=== PATIENT | male | born 1960 | race African-American/Black ===

== ENCOUNTER 2024-05-27 01:25 | Inpatient (IN) | payer MEDICARE ==
[2024-05-27] VITALS (16 sets, daily range): BP systolic 129–173; BP diastolic 78–110; PULSE 45–105; RESP 16–28; TEMP 97.2–98.6; O2SAT 88–99
[~2024-05-27] VITALS: Ht 180.3 cm; Wt 81.6 kg
[2024-05-27] MEDS: ASPIRIN 325 MG TAB PO ONE (02:15)
[2024-05-27] MEDS: NITROGLYCERIN 2% OINT 1 GM PKT TOP ONE (02:16)
[2024-05-27] MEDS ORDERED: IOPAMIDOL 370 MG/ML 100 ML INFUS..BTL INJ ONE (02:27)
[2024-05-27] MEDS: FUROSEMIDE INJ 10 MG/ML 4 ML VIAL IV ONE (02:48)
[2024-05-27] MEDS: ONDANSETRON HCL INJ 2MG/ML 2ML 2 MG/ML VIAL IV STA (03:37)
[2024-05-27] MEDS: Morphine 4mg INJECTION 4 MG/ML INJ IV ONE (03:38)
[2024-05-27] MEDS: HYDRALAZINE HCL 20 MG/ML VIAL IV STA (04:25)
[2024-05-27] MEDS ORDERED: NITROGLYCERIN 0.4 MG SUBL SL PRN (04:45)
[2024-05-27] MEDS ORDERED: SODIUM CHLORIDE FLUSH 10 ML SYR INJ PRN (04:45)
[2024-05-27] MEDS ORDERED: ONDANSETRON HCL INJ 2MG/ML 2ML 2 MG/ML VIAL IV PRN (04:45)
[2024-05-27] MEDS: ASPIRIN 81 MG CHEW TAB PO ONE (05:21)
[2024-05-27] MEDS: NITROGLYCERIN 2% OINT 1 GM PKT TOP SCH (05:21)
[2024-05-27] MEDS ORDERED: MELATONIN 3 MG TAB PO PRN (07:45)
[2024-05-27] MEDS ORDERED: METOPROLOL TARTRATE INJ 1 MG/ML VIAL IV PRN (07:45)
[2024-05-27] MEDS ORDERED: ALBUTEROL/IPRATROPIUM 3 ML NEB NEB PRN (07:45)
[2024-05-27 08:20] LABS: BASOPHILS % 0.4 % (0.0-1.0); EOSINOPHILS # (AUTO) 0.3 (0.0-0.4); EOSINOPHILS % 3.3 % (0.0-6.0); HEMATOCRIT 42.6 % (38.2-49.6); HEMOGLOBIN 14.7 g/dL (14.0-18.0); LYMPHOCYTES # (AUTO) 2.3 (1.0-3.2); LYMPHOCYTES % 25.2 % (18.0-39.1); MEAN CORPUSCULAR HEMOGLOBIN 32.3 pg (28-32); MEAN CORPUSCULAR HGB CONC 34.5 g/dL (31-35); MEAN CORPUSCULAR VOLUME 93.6 fL (81-99); MONOCYTES # (AUTO) 0.6 (0.2-0.8); MONOCYTES % 6.2 % (4.4-11.3); NEUTROPHILS # (AUTO) 5.9 (2.1-6.9); NEUTROPHILS % 64.5 % (38.7-80.0); PLATELET COUNT 187 x10e3/uL (140-360); RED BLOOD COUNT 4.55 x10e6/uL (4.3-5.7); RED CELL DISTRIBUTION WIDTH 12.6 % (11.7-14.4); WHITE BLOOD COUNT 9.19 x10e3/uL (4.8-10.8)
[2024-05-27] MEDS: ASPIRIN 325 MG TAB PO SCH (08:31)
[2024-05-27] MEDS: LOSARTAN POTASSIUM 25 MG TAB PO SCH (08:35)
[2024-05-27] MEDS: SPIRONOLACTONE 25 MG TAB PO SCH (08:36)
[2024-05-27] MEDS: CARVEDILOL 12.5 MG TAB PO SCH ×2 (08:36→17:12)
[2024-05-27] MEDS: FUROSEMIDE INJ 10 MG/ML 4 ML VIAL IV SCH (08:40)
[2024-05-27] MEDS: MUPIROCIN 2% OINT 22 GM TUBE TOP SCH (08:41)
[2024-05-27 08:53] LABS: ALBUMIN 4.3 g/dL (3.5-5.0); BILIRUBIN,DIRECT 0.4 mg/dL (0.0-0.5); BILIRUBIN,TOTAL 3.1 mg/dL (0.2-1.2); CHOL/HDL RATIO 2.6 (3.9-4.7); MAGNESIUM 1.8 MG/DL (1.3-2.1); TOTAL PROTEIN 7.9 g/dL (6.5-8.1)
[2024-05-27 08:59] LABS: TROPONIN I 0.028 ng/mL (0-0.300)
[2024-05-27] MEDS ORDERED: MUPIROCIN 2% OINT 22 GM TUBE TOP SCH (09:00)
[2024-05-27 09:56] LABS: CALCIUM 10.2 mg/dL (8.4-10.2); CREATININE, SERUM 1.37 mg/dL (0.72-1.25)
[2024-05-27] MEDS: CLOPIDOGREL BISULFATE 75 MG TAB PO ONE (12:14)
[2024-05-27] MEDS ORDERED: REGADENOSON 0.4 MG/5 ML SYR IV ONE (15:13)
[2024-05-27] MEDS: FAMOTIDINE 20 MG TAB PO SCH (17:12)
[2024-05-27] MEDS: SACUBITRIL/VALSARTAN 24MG/26MG 1 EA TAB PO SCH (17:12)
[2024-05-27] MEDS: ENOXAPARIN SOD INJ 40 MG/0.4 ML SYR SC SCH (17:13)
[2024-05-27] MEDS: FUROSEMIDE 40 MG TAB PO SCH (17:13)
[2024-05-27] MEDS: ATORVASTATIN 40 MG TAB PO SCH (20:50)
[2024-05-27 21:34] LABS: TROPONIN I 0.031 ng/mL (0-0.300)
[2024-05-28] VITALS (11 sets, daily range): BP systolic 139–148; BP diastolic 66–89; PULSE 53–71; RESP 18–19; TEMP 97.4–98.5; O2SAT 96–100
[2024-05-28 06:42] LABS: BASOPHILS % 0.5 % (0.0-1.0); EOSINOPHILS # (AUTO) 0.4 (0.0-0.4); EOSINOPHILS % 6.9 % (0.0-6.0); HEMATOCRIT 47.8 % (38.2-49.6); HEMOGLOBIN 16.4 g/dL (14.0-18.0); LYMPHOCYTES # (AUTO) 2.4 (1.0-3.2); LYMPHOCYTES % 38.7 % (18.0-39.1); MEAN CORPUSCULAR HEMOGLOBIN 32.6 pg (28-32); MEAN CORPUSCULAR HGB CONC 34.3 g/dL (31-35); MONOCYTES # (AUTO) 0.3 (0.2-0.8); MONOCYTES % 5.3 % (4.4-11.3); NEUTROPHILS % 48.4 % (38.7-80.0); PLATELET COUNT 186 x10e3/uL (140-360); RED BLOOD COUNT 5.03 x10e6/uL (4.3-5.7); RED CELL DISTRIBUTION WIDTH 12.3 % (11.7-14.4); WHITE BLOOD COUNT 6.26 x10e3/uL (4.8-10.8)
[2024-05-28 07:17] LABS: ANION GAP 17.3 mmol/L (8-16); CALCIUM 9.5 mg/dL (8.4-10.2); CREATININE, SERUM 1.41 mg/dL (0.72-1.25)
[2024-05-28 07:53] LABS: POTASSIUM 3.3 mmol/L (3.5-5.1)
[2024-05-28 08:00] LABS: TROPONIN I 0.031 ng/mL (0-0.300)
[2024-05-28] MEDS ORDERED: LOSARTAN POTASSIUM 25 MG TAB PO SCH (09:00)
[2024-05-28] MEDS: SPIRONOLACTONE 25 MG TAB PO SCH (10:22)
[2024-05-28] MEDS: CLOPIDOGREL BISULFATE 75 MG TAB PO SCH (10:22)
[2024-05-28] MEDS: CARVEDILOL 12.5 MG TAB PO SCH (17:29)
[2024-05-28] MEDS: DOCUSATE SODIUM 100 MG CAP PO PRN (21:13)
[2024-05-28] MEDS: ACETAMINOPHEN 325 MG TAB PO PRN (21:19)
[2024-05-29] VITALS (11 sets, daily range): BP systolic 128–152; BP diastolic 77–96; PULSE 52–68; RESP 18; TEMP 97.6–98.2; O2SAT 96–100
[2024-05-29 05:19] LABS: ALBUMIN 3.7 g/dL (3.5-5.0); ALBUMIN/GLOBULIN RATIO 1.2 (0.8-2.0); ANION GAP 16.3 mmol/L (8-16); BILIRUBIN,TOTAL 2.4 mg/dL (0.2-1.2); CALCIUM 9.1 mg/dL (8.4-10.2); CREATININE, SERUM 1.62 mg/dL (0.72-1.25); MAGNESIUM 1.7 MG/DL (1.3-2.1); TOTAL PROTEIN 6.9 g/dL (6.5-8.1)
[2024-05-29 05:23] LABS: POTASSIUM 3.3 mmol/L (3.5-5.1)
[2024-05-29] MEDS: Morphine 4mg INJECTION 4 MG/ML INJ IV PRN (16:21)
[2024-05-30] VITALS: BP 149/80; PULSE 60; RESP 18; TEMP 98; O2SAT 97
[2024-05-30] MEDS ORDERED: PLAVIX75 MG PO (05:16)
[2024-05-30] MEDS ORDERED: ALDACTONE25 MG PO (05:16)
[2024-05-30] MEDS ORDERED: FUROSEMIDE40 MG PO (05:16)
[2024-05-30] MEDS ORDERED: COREG12.5 MG PO (05:16)
[2024-05-30] MEDS ORDERED: FAMOTIDINE20 MG PO (05:16)
[2024-05-30] MEDS ORDERED: ATORVASTATIN CA40 MG PO (05:16)
[2024-05-30] MEDS ORDERED: Sacubitril/Valsartan 24MG/26MG PO (05:16)
[2024-05-30] MEDS ORDERED: ASPIRIN EC81 MG PO (05:16)
[2024-05-30 07:51] VITALS: BP 153/83; PULSE 52; RESP 21; TEMP 97.6; O2SAT 99
[2024-05-30] MEDS: FUROSEMIDE 40 MG TAB PO SCH (08:35)
[2024-05-30 08:54] VITALS: PULSE 60; RESP 18; O2SAT 99
[2024-05-30] MEDS ORDERED: ENTRESTO 24 MG1 EACH PO (09:31)
[2024-05-30 11:38] VITALS: BP 132/72; PULSE 70; RESP 20; TEMP 97.5; O2SAT 100
== END 2024-05-30 12:17 | disposition home or self-care (01) | DRG 291 ==
LOC: FSED 01:28 → ERHOLD 04:40 → ICU 05:14 → MED/SURG 09:36
PROVIDERS: ADMIT Internal Medicine; ATTEND Internal Medicine
DX: I13.0 Hypertensive heart and chronic kidney disease with heart failure and stage 1 through stage 4 chronic kidney disease, or unspecified chronic kidney disease (principal); I50.23 Acute on chronic systolic (congestive) heart failure; I47.20 Ventricular tachycardia, unspecified; I27.20 Pulmonary hypertension, unspecified; Z99.81 Dependence on supplemental oxygen; N18.30 Chronic kidney disease, stage 3 unspecified; R06.00 Dyspnea, unspecified; E80.4 Gilbert syndrome; I08.0 Rheumatic disorders of both mitral and aortic valves; I25.10 Atherosclerotic heart disease of native coronary artery without angina pectoris; J44.9 Chronic obstructive pulmonary disease, unspecified; G47.33 Obstructive sleep apnea (adult) (pediatric); Z11.52 Encounter for screening for COVID-19; E78.5 Hyperlipidemia, unspecified; R31.29 Other microscopic hematuria; R53.81 Other malaise; F41.9 Anxiety disorder, unspecified; T46.3X6A Underdosing of coronary vasodilators, initial encounter; T50.2X6A Underdosing of carbonic-anhydrase inhibitors, benzothiadiazides and other diuretics, initial encounter; Z91.128 Patient's intentional underdosing of medication regimen for other reason; Z79.82 Long term (current) use of aspirin; Z63.9 Problem related to primary support group, unspecified; Z59.6 Low income; I25.2 Old myocardial infarction; Z88.0 Allergy status to penicillin; Z87.891 Personal history of nicotine dependence; Z82.49 Family history of ischemic heart disease and other diseases of the circulatory system
CPT/HCPCS: 0223U; 36415; 71275; 74174; 78452; 80048; 80053; 80061; 80076; 81003; 82550; 82553; 83735; 83880; 84100; 84484; 85025; 85379; 87400; 93005; 93017; 93306; 94660; 94799; 96372; 99284; A9502; J0360; J1650; J1940; J2270; J2405; Q9967